=== PATIENT | male | born 1965 | race Caucasian/White ===

== ENCOUNTER 2019-03-29 12:29 | Emergency (ER) | payer OTHER ==
[2019-03-29] MEDS: HYDROCODONE/APAP (5/325) TAB PO (14:07)
== END 2019-03-29 14:14 | disposition left against medical advice (07) ==
LOC: FTE 12:29
DX: R10.9 Unspecified abdominal pain (principal); Z48.01 Encounter for change or removal of surgical wound dressing; Z87.891 Personal history of nicotine dependence
CPT/HCPCS: 71045; 71100; 99283-25